=== PATIENT | male | born 1995 | race Caucasian/White ===

== ENCOUNTER 2022-07-02 10:52 | Emergency (ER) | payer OTHER ==
[2022-07-02] MEDS ORDERED: Lidocaine 1% 10 ML MDV INJECT ONE (11:49)
== END 2022-07-02 12:43 | disposition home or self-care (01) ==
LOC: JD.ED 10:52
DX: S62.396A Other fracture of fifth metacarpal bone, right hand, initial encounter for closed fracture (principal); W20.8XXA Other cause of strike by thrown, projected or falling object, initial encounter
CPT/HCPCS: 29125; 73130-26-RT; 73130-RT; 99283; J3490